=== PATIENT | female | born 1985 | race Caucasian/White ===

== ENCOUNTER 2017-04-10 14:49 | Emergency (ER) | payer MEDICAID ==
[~2017-04-10] VITALS: Ht 175.3 cm; Wt 68.0 kg
[~2017-04-10 14:49] MED LIST: ACET-1156 PO; BUPR75TA4 PO; PREN-129 OR
[2017-04-10 15:00] VITALS: BP 101/72
== END 2017-04-10 15:22 | disposition home or self-care (01) ==
LOC: ER 14:49
DX: D17.0 Benign lipomatous neoplasm of skin and subcutaneous tissue of head, face and neck (principal); F17.210 Nicotine dependence, cigarettes, uncomplicated; F15.10 Other stimulant abuse, uncomplicated; Z88.6 Allergy status to analgesic agent; Z91.040 Latex allergy status

== ENCOUNTER 2017-07-27 20:03 | Emergency (ER) | payer MEDICAID ==
[~2017-07-27] VITALS: Ht 175.3 cm; Wt 74.4 kg
[2017-07-27 20:16] VITALS: BP 121/79
[2017-07-27] MEDS ORDERED: KETOROLAC TROMETH 60MG/2ML VIAL IM ONE (22:00)
== END 2017-07-28 00:52 | disposition home or self-care (01) ==
LOC: ER 20:03
DX: S60.212A Contusion of left wrist, initial encounter (principal); F17.210 Nicotine dependence, cigarettes, uncomplicated; F15.10 Other stimulant abuse, uncomplicated; F12.10 Cannabis abuse, uncomplicated; X58.XXXA Exposure to other specified factors, initial encounter; Y93.89 Activity, other specified; Y92.89 Other specified places as the place of occurrence of the external cause; Y99.8 Other external cause status; Z88.6 Allergy status to analgesic agent; Z91.040 Latex allergy status
CPT/HCPCS: 29125; 96372; 99284; J1885

== ENCOUNTER 2018-11-18 17:26 | Emergency (ER) | payer MEDICAID ==
[~2018-11-18] VITALS: Ht 175.3 cm; Wt 76.2 kg
[2018-11-18 17:30] VITALS: BP 130/67
== END 2018-11-18 22:53 | disposition home or self-care (01) ==
LOC: ER 17:32
DX: S93.401A Sprain of unspecified ligament of right ankle, initial encounter (principal); F17.210 Nicotine dependence, cigarettes, uncomplicated; F12.10 Cannabis abuse, uncomplicated; F15.10 Other stimulant abuse, uncomplicated; Z88.6 Allergy status to analgesic agent; Z91.040 Latex allergy status; W17.2XXA Fall into hole, initial encounter; Y93.01 Activity, walking, marching and hiking; Y92.89 Other specified places as the place of occurrence of the external cause; Y99.8 Other external cause status
CPT/HCPCS: 73610

== ENCOUNTER 2020-02-05 20:31 | Emergency (ER) | payer MEDICAID ==
[~2020-02-05] VITALS: Ht 175.3 cm; Wt 68.0 kg
[2020-02-05 20:42] VITALS: BP 127/68
== END 2020-02-05 22:26 ==
LOC: ER 20:32
DX: S20.211A Contusion of right front wall of thorax, initial encounter (principal); S40.011A Contusion of right shoulder, initial encounter; X58.XXXA Exposure to other specified factors, initial encounter; Y93.89 Activity, other specified; Y92.89 Other specified places as the place of occurrence of the external cause; Y99.8 Other external cause status
CPT/HCPCS: 71250

== ENCOUNTER 2020-12-30 13:08 | Emergency (ER) | payer MEDICAID ==
[~2020-12-30] VITALS: Ht 175.3 cm; Wt 74.8 kg
[2020-12-30] MEDS ORDERED: cefTRIAXone SOD 1,000 MG VL IM ONE (14:15)
[2020-12-30] MEDS ORDERED: LIDOCAINE 1% HCL (LOCAL ANESTH.) INJ 20ML MDV IJ ONE (14:15)
[2020-12-30 14:47] VITALS: BP 150/83
== END 2020-12-30 15:04 | disposition home or self-care (01) ==
LOC: ER 13:08
DX: L02.416 Cutaneous abscess of left lower limb (principal); F17.210 Nicotine dependence, cigarettes, uncomplicated; F12.10 Cannabis abuse, uncomplicated; F15.10 Other stimulant abuse, uncomplicated; Z88.6 Allergy status to analgesic agent; Z91.040 Latex allergy status
CPT/HCPCS: 10061; 96372; 99284; J0696; J2001

== ENCOUNTER 2021-01-01 07:47 | Emergency (ER) | payer MEDICAID ==
[~2021-01-01] VITALS: Ht 175.3 cm; Wt 74.8 kg
[2021-01-01 07:49] VITALS: BP 126/72
== END 2021-01-01 08:42 | disposition home or self-care (01) ==
LOC: ER 07:47
DX: L02.416 Cutaneous abscess of left lower limb (principal); F41.9 Anxiety disorder, unspecified; F32.9 Major depressive disorder, single episode, unspecified; F17.210 Nicotine dependence, cigarettes, uncomplicated; F12.10 Cannabis abuse, uncomplicated; F15.10 Other stimulant abuse, uncomplicated; Z48.01 Encounter for change or removal of surgical wound dressing

== ENCOUNTER 2021-01-04 06:58 | Emergency (ER) | payer MEDICAID ==
[~2021-01-04] VITALS: Ht 175.3 cm; Wt 74.8 kg
[2021-01-04 07:25] VITALS: BP 115/71
== END 2021-01-04 08:07 | disposition home or self-care (01) ==
LOC: ER 06:58
DX: L02.416 Cutaneous abscess of left lower limb (principal); F17.210 Nicotine dependence, cigarettes, uncomplicated; Z79.899 Other long term (current) drug therapy; Z91.040 Latex allergy status
CPT/HCPCS: 87077; 87186; 87205

== ENCOUNTER 2021-01-06 06:26 | Emergency (ER) | payer MEDICAID ==
[~2021-01-06] VITALS: Ht 175.3 cm; Wt 74.8 kg
[2021-01-06 07:26] VITALS: BP 131/84
== END 2021-01-06 07:46 | disposition home or self-care (01) ==
LOC: ER 06:26
DX: L02.416 Cutaneous abscess of left lower limb (principal); F17.210 Nicotine dependence, cigarettes, uncomplicated; F12.10 Cannabis abuse, uncomplicated; F15.10 Other stimulant abuse, uncomplicated; Z48.01 Encounter for change or removal of surgical wound dressing; Z76.0 Encounter for issue of repeat prescription

== ENCOUNTER 2023-08-21 08:21 | Emergency (ER) | payer MEDICAID ==
[~2023-08-21] VITALS: Ht 175.3 cm; Wt 78.2 kg
[~2023-08-21 08:21] MED LIST changes: -ACET-1156 PO; +ACET-1881 PO
[2023-08-21 09:15] VITALS: BP 140/72; PULSE 117; RESP 18; TEMP 98.5; O2SAT 99
[2023-08-21] MEDS ORDERED: MUPI2CRE17 EX (09:57)
[2023-08-21] MEDS ORDERED: CEPH500C PO (09:57)
== END 2023-08-21 10:03 | disposition home or self-care (01) ==
LOC: ER 08:21
DX: Z48.00 Encounter for change or removal of nonsurgical wound dressing (principal); S50.8 Other superficial injuries of forearm; F12.10 Cannabis abuse, uncomplicated; F15.10 Other stimulant abuse, uncomplicated; F17.210 Nicotine dependence, cigarettes, uncomplicated; Z88.6 Allergy status to analgesic agent; Z91.040 Latex allergy status; X58.XXXD Exposure to other specified factors, subsequent encounter

== ENCOUNTER 2025-02-17 12:23 | Emergency (ER) | payer MEDICAID ==
[~2025-02-17] VITALS: Ht 175.3 cm; Wt 83.4 kg
[~2025-02-17 12:23] MED LIST changes: +CEPH500C PO; +MUPI2CRE17 EX
--- NOTE | 2025-02-17 13:49 | DVH ---
CLINICAL INDICATION: Pain/R/o fracture TECHNIQUE: 3 radiographic views of the left knee were obtained. Comparison: None FINDINGS/IMPRESSION: There is no evidence of acute fracture or dislocation. The visualized joint space is well maintained. The alignment is anatomical. There is no radiopaque foreign body.
--- NOTE | 2025-02-17 14:41 | ED.PDOC ---
Musculoskeletal HPI Comments 40 year old female presents to the ED for the c/c of Left knee pain. Pt states that she has experienced multiple mechanical falls, with her most recent one being yesterday. Pt notes most of her pain is located on her left knee. Multiple bruises to her Bilateral extremities noted. Able to bear weight on the leg Denies skin color changes around the knee Denies masses around the knee Denies popping/locking/giving out of the knee Denies fever chills night sweats nausea vomiting Denies previous surgeries to the knee nor significant injury Pt Denies fever, SOB, chest pain, abdominal pain, vomiting, diarrhea, vision changes, No other symptoms or modifying factors reported at this time. Patient is alert and oriented x4. Chief Complaint: Lower Extremity Time Seen by MD: 14:33 Primary Care Provider: YOSEF Reviewed Notes: Nurses Notes, Medications, Allergies Allergies: Coded Allergies: Hydrocodone (Verified Allergy, Unknown, 04/15/17) Latex (Verified Allergy, Unknown, 04/15/17) Uncoded Allergies: VICODINE (Allergy, Unknown, 02/17/25) Home Meds Active Scripts Mupirocin Calcium (Topical) (MUPIROCIN) 2 % Cre, 2 % EX BID for 10 Days, #5 GRAMS 0 Refills Prov:GEE BROWN BARGAIN TABLE CLERK 08/21/23 Cephalexin Monohydrate (Cephalexin) 500 Mg Cap, 500 MG PO QID for 5 Days, #20 CAP 0 Refills Prov:GEE BROWN BARGAIN TABLE CLERK 08/21/23 Reported Medications Acetaminophen (Acetaminophen) 325 Mg Tab, 325 MG PO Q4HP PRN for MILD PAIN for 30 Days, MG 12/24/14 Bupropion Hcl (Wellbutrin) 75 Mg Tab, 75 MG PO PRN for ANXIETY, TAB 12/07/13 Vit W/ Ferrous Fumara () Tab, 1 TAB OR DAILY, TAB 12/07/13 Information Source: Patient Mode of Arrival: Ambulatory Location: Left Extremity Location: Knee Timing: Days Prehospital treatment: None Severity: Moderate Able to Move Extremity: Yes Bear Weight: Limited Pain: Moderate Mechanism: Other (Mechanical fall) Circumstances: Fall Onset of Symptoms: After Trauma Symptoms: Swelling, Pain, Erythema DVT Risk Factors: NONE Associated signs and symptoms: Swelling, Leg pain Past Medical History PAST MEDICAL HISTORY: Anxiety, Depression Surgical History: Denies all surgeries INSTRUCTIONAL COACH History: No Pertinent INSTRUCTIONAL COACH History Family History Family History: Family hx of DM, Family hx of Cancer, Family hx of HTN Social History Smoker: Cigarettes, Less Than 1 Pack/Day Alcohol: Denies ETOH Use Drugs: Marijuana, Methamphetamine Lives In: Home Constitutional: denies: chills, diaphoresis, fatigue, fever, malaise, sweats, weakness, others EENTM: denies: blurred vision, double vision, ear bleeding, ear discharge, ear drainage, ear pain, ear ringing, eye pain, eye redness, hearing loss, mouth pain, mouth swelling, nasal discharge, nose bleeding, nose congestion, nose pain, photophobia, tearing, throat pain, throat swelling, voice changes, others Respiratory: denies: cough, hemoptysis, orthopnea, SOB at rest, shortness of breath, SOB with excertion, stridor, wheezing, others Cardiovascular: denies: chest pain, dizzy spells, diaphoresis, Dyspnea on exertion, edema, irregular heart beat, left arm pain, lightheadedness, palpitations, PND, syncope, others Gastrointestinal: denies: abdomen distended, abdominal pain, blood streaked bowels, constipated, diarrhea, dysphagia, difficulty swallowing, hematemesis, melena, nausea, poor appetite, poor fluid intake, rectal bleeding, rectal pain, vomiting, others Genitourinary: denies: abnormal vagina bleeding, burning, dyspareunia, dysuria, flank pain, frequency, hematuria, incontinence, pain, , vagina dischar ge, urgency, others Neurological: denies: dizziness, fainting, headache, left sided numbness, left sided weakness, numbness, paresthesia, pre-existing deficit, right sided numbness, right sided weakness, seizure, speech problems, tingling, tremors, weakness, others Musculoskeletal: reports: others (left knee pain); denies: back pain, gout, joint pain, joint swelling, muscle pain, muscle stiffness, neck pain Integumetry: reports: bruises; denies: change in color, change in hair/nails, dryness, laceration, lesions, lumps, rash, wounds, others Allergic/Immunocompromised: denies: Difficulty Healing, Frequent Infections, Hives, Itching, others Hematologic/Lymphatic: denies: anemia, blood clots, easy bleeding, easy bruising, swollen glands, others Endocrine: denies: excessive hunger, excessive sweating, excessive thirst, excessive urination, flushing, intolerance to cold, intolerance to heat, unexplained weight gain, unexplained weight loss, others Psychiatric: denies: anxiety, bipolar disorder, depression, hopeless, panic disorder, schizophrenia, sleepless, suicidal, others All Other Systems: Reviewed and Negative Physical Exam General Appearance: No Apparent Distress, Normal HEENT: Normal ENT Inspection, Pharynx Normal, TMs Normal Neck: Full Range of Motion, Non-Tender, Normal, Normal Inspection Respiratory: Chest Non-Tender, Lungs Clear, No Accessory Muscle Use, No Respiratory Distress, Normal Breath Sounds Cardiovascular: No Edema, No JVD, No Murmur, No Gallop, Normal Peripheral Pulses, Regular Rate/Rhythm Breast Exam: Deferred Gastrointestinal: No Organomegaly, Non Tender, No Pulsatile Mass, Normal Bowel Sounds, Soft Genitalia: Deferred Pelvic: Deferred Rectal: Deferred Extremities: No calf tenderness, Non-tender, No pedal edema Musculoskeletal : Location: Left Extremity Location: Knee (mild welling to Left anterior patela, no TTP, only subjective pain w/ flexion and extension. Valgus and vargus stress test was negative, anterior and posterior drawer test negative. ) Apperance: Normal Neurologic: Alert, No Motor Deficits, Normal Mood Cerebellar Function: Normal Reflexes: Normal Skin: Dry, Normal Color, Warm Lymphatic: No Adenopathy Was a procedure done? Was a procedure done?: No Differential Diagnosis EXT Differential Diagnosis: Fracture, Sprain, Strain X-Ray, Labs, Meds, VS Vital Signs Date Time Temp Pulse Resp B/P (MAP) Pulse Ox O2 Delivery O2 Flow Rate FiO2 02/17/25 14:47 68 17 97 Room Air 02/17/25 14:47 98.7 78 17 135/84 (101) 98 98.7 02/17/25 13:18 98.4 111 20 147/89 (108) 97 98.4 PATIENT: JENNIFER VO ACCT: [id number] UNIT: [id number] : 1985 LOC: ER ROOM / BED: / AGE / SEX: 40 / F ADM STATUS: REG ER SERVICE 1304 ORDERING PHYSICIAN: GEE BROWN NP PROCEDURE(s): LKNE3 - L KNEE 3V XRAY REASON: Pain/R/o fracture ORDER NUMBER(s): [id number], ACCESSION NUMBER(s): [id number] CLINICAL INDICATION: Pain/R/o fracture TECHNIQUE: 3 radiographic views of the left knee were obtained. Comparison: None FINDINGS/IMPRESSION: There is no evidence of acute fracture or dislocation. The visualized joint space is well maintained. The alignment is anatomical. There is no radiopaque foreign body. X-Ray, Labs, Meds, VS Comment 40 year old female presents to the ED for the c/c of Left knee pain. X-ray interpreted by radiologist and reviewed by me Today symptoms are consistent with acute knee sprain Prescribed NSAIDs for the management of acute knee pain. Take ibuprofen p.o. 600 mg every 8 hours with food as needed for pain Recommend light walking under the sun for 30 minutes a day Avoiding running jogging high-impact activities Stretch as tolerated Ice 3x/day for 5 minutes Wear knee brace for stability as needed, elevate leg swelling aggravated Additional MDM Review of External, Non-ED records: External records reviewed. Discussion with independent historian (EMS, family) history obtained from the patient at bedside Chronic conditions affecting care: None Social determinants of health affecting care: None Consideration of admission (observation or admission): I considered escalation of care to admission for this patient, however given the reassuring workup, the patient is safe for outpatient management. Time of 1ST Reevaluation: 15:04 Reevaluation 1ST: Unchanged Patient Education/Counseling: Diagnosis, Treatment Family Education/Counseling: No Family Present Departure 1 Departure Time of Disposition: 14:42 Impression: Primary Impression: Knee sprain Qualified Codes: S83.92XA - Sprain of unspecified site of left knee, initial encounter Additional Impression: Fall Qualified Codes: W19.XXXA - Unspecified fall, initial encounter Disposition: HOME / SELF CARE / HOMELESS Condition: Stable Discharged With: Relative Critical Care Note Critical Care Time?: No Stability Stability form required: No Heart Score Heart Score: Heart Score Response (Comments) Value History N/A 0 EKG N/A 0 Age N/A 0 Risk Factors N/A 0 Troponin N/A 0 Total 0 I personally scribed for GEE BROWN NP ([email or web address]) on 02/17/25 at 14:41. Electronically submitted by Venkatesh Castañeda ([email or web address]). I personally scribed for GEE BROWN NP ([email or web address]) on 02/17/25 at 14:41. Electronically submitted by Venkatesh Castañeda ([email or web address]). GEE BROWN NP February 17, 2025 14:41
[2025-02-17 14:47] VITALS: BP 135/84; PULSE 68; RESP 17; TEMP 98.7; O2SAT 97
== END 2025-02-17 14:56 | disposition home or self-care (01) ==
LOC: ER 12:23
DX: S83.92XA Sprain of unspecified site of left knee, initial encounter (principal); F17.210 Nicotine dependence, cigarettes, uncomplicated; F32.A Depression, unspecified; F41.9 Anxiety disorder, unspecified; Z88.5 Allergy status to narcotic agent; W19.XXXA Unspecified fall, initial encounter; Y93.89 Activity, other specified; Y92.89 Other specified places as the place of occurrence of the external cause; Y99.8 Other external cause status
CPT/HCPCS: 73562